=== PATIENT | male | born 1955 | race Caucasian/White ===

== ENCOUNTER 2016-04-30 16:12 | Outpatient (CLI) | payer BC ==
[2016-04-30] MEDS ORDERED: HEPARIN 500 UNIT/5 ML SYRINGE FOR CENTRAL LINE IVP PRN (16:40)
[2016-04-30] MEDS ORDERED: NORMAL SALINE 10 ML SYRINGE FLUSH IVP PRN (16:40)
[2016-04-30 16:44] VITALS: RESP 16; TEMP 98.5
[2016-04-30 17:03] LABS: BASOPHILS # (AUTO) 0.03 10*3/UL; BASOPHILS % (AUTO) 0.7 % (0-1); HEMATOCRIT 28.2 % (42.0-52.0); HEMOGLOBIN 9.2 g/dL (14.0-18.0); IMM GRAN % (AUTO) 0 % (0-5); IMM GRAN# (AUTO) 0 10*3/UL; LYMPHOCYTES # (AUTO) 1.01 10*3/uL; LYMPHOCYTES % (AUTO) 23.8 % (10-50); MEAN CORPUSCULAR HEMOGLOBIN 32.1 PG (27-31); MEAN CORPUSCULAR HGB CONC 32.6 g/dL (33-37); MEAN PLATELET VOLUME 8.8 FL (7.4-12.2); MONOCYTES # (AUTO) 0.41 10*3/UL (0.3-0.8); MONOCYTES % (AUTO) 9.7 % (5-15); NEUTROPHILS # (AUTO) 2.62 10*3/UL; NEUTROPHILS % (AUTO) 61.8 % (50-80); RDW COEFFICIENT OF VARIATION 18.8 % (11.5-14.5); RED BLOOD COUNT 2.87 10^6/uL (4.70-6.10); WHITE BLOOD COUNT 4.24 10^3/uL (4.8-10.8)
[2016-04-30 17:21] LABS: ASPARTATE AMINO TRANSFERASE 16 IU/L (21-57); BILIRUBIN,TOTAL 0.4 mg/dL (0.3-1.2); BLOOD UREA NITROGEN 16 mg/dL (7-22); CALCIUM 8.9 mg/dL (8.7-10.7); CHLORIDE 107 meq/L (98-112); EST GLOMERULAR FILTRATION > 60 (>60 ml/min/1.73m(2)); GLUCOSE 93 mg/dL (78-110); POTASSIUM 3.5 meq/L (3.8-5.2); SODIUM 143 meq/L (135-145); TOTAL PROTEIN 6.3 g/dL (6.1-8.0)
[2016-04-30 17:51] LABS: PLATELET MORPHOLOGY COMMENT NORMAL MORPHOLOGY (NORM)
== END 2016-05-05 21:00 | disposition home or self-care (01) ==
LOC: IV THERAPY 16:12
PROVIDERS: ATTEND Personal Emergency Response Attendant
DX: C10.8 Malignant neoplasm of overlapping sites of oropharynx (principal); Z45.2 Encounter for adjustment and management of vascular access device
CPT/HCPCS: 80053; 85025; 99211

== ENCOUNTER 2016-06-25 18:17 | Emergency (ER) | payer BC ==
[2016-06-25] MEDS ORDERED: ACETAMINOPHEN 325 MG TABLET PO ONE (18:21)
[2016-06-25] MEDS ORDERED: Sodium Chloride 0.9% 1,000 ML PRIMARY IV ONE (18:21)
[2016-06-25] MEDS ORDERED: NORMAL SALINE 10 ML SYRINGE FLUSH IVP PRN (18:21)
[2016-06-25 18:38] VITALS: RESP 18
[2016-06-25] MEDS ORDERED: ACETAMINOPHEN 500 MG TABLET PO ONE (18:52)
[2016-06-25 18:56] LABS: BASOPHILS # (AUTO) 0.02 10*3/UL; BASOPHILS % (AUTO) 0.3 % (0-1); EOSINOPHILS # (AUTO) 0.09 10*3/UL; EOSINOPHILS % (AUTO) 1.4 % (0-8); HEMATOCRIT 35.5 % (42.0-52.0); HEMOGLOBIN 12.3 g/dL (14.0-18.0); LYMPHOCYTES # (AUTO) 0.29 10*3/uL; MEAN CORPUSCULAR HEMOGLOBIN 32.3 PG (27-31); MEAN CORPUSCULAR HGB CONC 34.6 g/dL (33-37); MEAN CORPUSCULAR VOLUME 93.2 FL (80-90); MONOCYTES # (AUTO) 0.63 10*3/UL (0.3-0.8); MONOCYTES % (AUTO) 9.6 % (5-15); NEUTROPHILS # (AUTO) 5.54 10*3/UL; NEUTROPHILS % (AUTO) 84.1 % (50-80); RED BLOOD COUNT 3.81 10^6/uL (4.70-6.10)
[2016-06-25 18:57] LABS: PLATELET MORPHOLOGY COMMENT NORMAL MORPHOLOGY (NORM); RBC MORPHOLOGY COMMENT NORMAL MORPHOLOGY (NORM); WBC MORPHOLOGY COMMENT NORMAL MORPHOLOGY (NORM)
--- NOTE | 2016-06-25 18:57 | DI ---
PA /LATERAL CHEST X-RAY, 06/25/2016 6:21 PM : Clinical History: Fever. Previous Exam: 09/26/2015. There is no acute soft tissue or bony abnormality. The patient has an indwelling catheter inserted fr om the right subclavian route and the catheter tip is in the proximal superior vena cava. Heart size is normal. Lungs are clear. Mediastinal structures are normal. There are no pulmonary nodules. Reading: Normal chest x-ray. There has been no interval change.
[2016-06-25] MEDS ORDERED: HEPARIN 500 UNIT/5 ML SYRINGE FOR CENTRAL LINE IVP ONE (19:07)
[2016-06-25 19:08] LABS: BLOOD UREA NITROGEN 12 mg/dL (7-22); BUN/CREATININE RATIO 13.33 (6-20); C-REACTIVE PROTEIN 7.1 mg/dL (0.0-0.9); CALCIUM 8.5 mg/dL (8.7-10.7); EST GLOMERULAR FILTRATION > 60 (>60 ml/min/1.73m(2)); SERUM ALBUMIN 3.9 g/dL (3.5-4.8)
[2016-06-25 20:02] LABS: BILIRUBIN,URINE NEGATIVE (NEG); COLOR,URINE YELLOW; GLUCOSE, URINE (UA) NEGATIVE (NEG); NITRATE,URINE NEGATIVE (NEG); OCCULT BLOOD,URINE NEGATIVE (NEG); PROTEIN,URINE TRACE mg/dl (NEG); UROBILINOGEN,URINE 0.2 EU/dL (0.2)
[2016-06-25 20:03] LABS: CLARITY,URINE CLEAR (CLEAR); URINE SAMPLE TYPE VOID
[2016-06-25 22:00] VITALS: TEMP 102
--- NOTE | 2016-06-25 23:37 | PDOC ---
General Adult HPI - General Chief Complaint: General Medical Stated Complaint: Fever Date Seen by Provider: 06/25/16 Time Seen by Provider: 18:20 Source: POSITIVE: Patient Exam Limitations: POSITIVE: No limitations Nurse's Notes Reviewed & Considered: Yes - History of Present Illness Initial Comment: The patient is a 60-year-old male who presents to the emergency department with fever. 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 He last received chemotherapy approximately 10 days ago and is currently receiving radiation treatments. He states that he developed a fever at home this afternoon associated with some shaking chills. His temperature at home measured 102. He did contact his oncologist in [place] and they recommended he come to the emergency room for evaluation. He denies any associated headache, increased cough or shortness of breath, abdominal pain, skin rash or any other associated symptoms or complaints. He denies urinary symptoms. Have you received a tetanus shot in the past 10 years?: Yes - Patient Home Medications Home Medications: Home Medications Levofloxacin Tab [Levaquin Tab] 750 mg PO DAILY #9 tablet 06/25/16 Pantoprazole Sodium [Protonix] 40 mg PO DAILY 06/25/16 oxyCODONE/APAP 5/325 Tab [Percocet 5/325 Tab] 1 - 2 tab PO PRN PRN 06/25/16 - Patient Allergies Allergies/Adverse Reactions: Allergies Allergy/AdvReac Type Severity Reaction Status Date / Time hydrocodone Allergy Intermediate RASH Verified 06/25/16 18:20 Past Medical History - heen HEENT History: Other (please comment) Additional HEENT History: PAIN LEFT NECK/DIFFICULTY SWALLOWING/TONSILLAR CANCER Cardiovascular History: Hypertension, Hyperlipidemia Additional Cardiovasular History: RECENT CARDIAC CLEARANCE OBTAINED FROM [facility] FOR TOTAL KNEE SX 11/08/15 Respiratory History: COPD, Snoring Gastrointestinal History: Peptic Ulcer Disease Additional Gastrointestinal History: EGD SHOWED SOME BLEEDING ULCERATIONS- ON PROTONIX FOR THAT Genitourinary History: Denies History Endocrine History: Denies History Musculoskeletal History: Arthritis, Back Pain, Joint Pain Prosthesis or Implant: Yes (LEFT TKA) Additional Musculoskeletal History: OA BILAT KNEES. Back pain related to cancer mets to spine. Primary cancer tonsilar. Neurological History: Denies History Blood Disorders: Denies History Psychiatric History: Denies History History of Sexually Transmitted Diseases: No Cancer History: Other (please comment) In Past Year Been Physically Harmed or Verbally Threatened: No History of MDRO: No History of Other Communicable Diseases: No Tobacco Use: Current Every Day Smoker Alcohol Use: Occasionally Substance Use Type: None Previous Surgical History: Yes Type / Date of Surgery: BILATERAL KNEE SCOPE/ LEFT TKA/ VASECTOMY/EGD/BX. Port placement Anesthesia Reactions: No Malignant Hyperthermia: No Significant Family History: Cancer Past Medical History Reviewed: Reviewed - No Changes ROS - Limitations ROS Limitations: No Limitations Constitution: REPORTS: Chills, Fever Cardiovascular: REPORTS: Denies Cardiac Symptoms Respiratory: REPORTS: Denies Resp Symptoms, Cough Non Productive (This is chronic and not any worse than usual). DENIES: Shortness Of Breath Neurological: DENIES: Headache, Dizziness, Numbness, Weakness Gastrointestinal: DENIES: Abdominal Pain, Nausea, Vomitting, Diarrhea Musculoskeletal: REPORTS: Denies MS Symptoms Genitourinary: REPORTS: Denies Symptoms Eyes: REPORTS: Denies Symptoms ENT: REPORTS: Denies Symptoms Skin: DENIES: Rash General Adult Exam - General Appearance General Appearance: POSITIVE: Alert, Cooperative, No Acute Distress - HEENT HEENT: POSITIVE: Head Inspection Nml, Eyes Inspection Nml, Ears Inspection Nml, Nose Inspection Nml, Pharynx Inspect. Nml - Neck Neck: POSITIVE: Normal Inspection - Respiratory Respiratory: POSITIVE: No Respiratory Distress, Breath Sounds Normal, Other (He does have a port in the right chest wall, there is no visible surrounding swelling, erythema or induration) - Cardiovascular Cardiovascular: POSITIVE: Regular Rate & Rhythm, No Murmur Peripheral Pulses: Dorsalis-pedis (R): 2+, Dorsalis-pedis (L): 2+ - Abdomen Abdomen: Soft: (All Quadrants), Denies Tenderness: (All Quadrants), No Distention: (All Quadrants) - Back Back: POSITIVE: Normal Inspection - Skin Skin: POSITIVE: Normal Color, No Rash - Extremities Extremity: Normal ROM: (All Extremities), Normal Inspection: (All Extremities) - Neurological / Psychological Neurological: POSITIVE: Oriented X3, Motor Normal, Sensation Normal General Adult Progress - Results Reviewed by me Xrays/CTs/US Reviewed by me: Yes Discussed with Radiologist: Yes Radiology Findings: Chest x-ray shows no acute infiltrate or any other acute findings per radiologist. Lab Results Reviewed: Yes Lab Results:: Laboratory Results 06/25/16 06/25/16 Range/Units 18:45 19:59 WBC 6.58 (4.8-10.8) 10^3/uL RBC 3.81 L (4.70-6.10) 10^6/uL Hgb 12.3 L (14.0-18.0) g/dL Hct 35.5 L (42.0-52.0) % MCV 93.2 H (80-90) FL MCH 32.3 H (27-31) PG MCHC 34.6 (33-37) g/dL RDW Std Deviation 39.6 (39-50) fL RDW Coeff of Shabana 11.9 (11.5-14.5) % Plt Count 205 (140-350) 10*3/uL MPV 9.0 (7.4-12.2) FL Immature Gran % (Auto) 0.2 (0-5) % Neut % (Auto) 84.1 H (50-80) % Lymph % (Auto) 4.4 L (10-50) % Otero % (Auto) 9.6 (5-15) % Eos % (Auto) 1.4 (0-8) % Baso % (Auto) 0.3 (0-1) % Immature Gran # (Auto) 0.01 10*3/UL Neut # (Auto) 5.54 10*3/UL Lymph # (Auto) 0.29 10*3/uL Otero # (Auto) 0.63 (0.3-0.8) 10*3/UL Eos # (Auto) 0.09 10*3/UL Baso # (Auto) 0.02 10*3/UL WBC Morphology Comment Normal morphology (NORM) Plt Morphology Comment Normal morphology (NORM) RBC Morph Comment Normal morphology (NORM) Sodium 137 (135-145) meq/L Potassium 3.6 L (3.8-5.2) meq/L Chloride 101 (98-112) meq/L Carbon Dioxide 25 (23-33) meq/L Anion Gap 11 (5-20) BUN 12 (7-22) mg/dL Creatinine 0.9 (0.70-1.50) mg/dL Estimated GFR > 60 (>60 ml/min/1.73m(2)) BUN/Creatinine Ratio 13.33 (6-20) Glucose 124 H (78-110) mg/dL Calculated Osmolality 284.0 (267-292) mOsm/kg Lactic Acid 0.9 (0.70-2.10) MMOL/L Calcium 8.5 L (8.7-10.7) mg/dL Total Bilirubin 0.5 (0.3-1.2) mg/dL AST 13 L (21-57) IU/L ALT 16 L (21-72) IU/L Alkaline Phosphatase 92 (38-126) IU/L C-Reactive Protein 7.1 H (0.0-0.9) mg/dL Total Protein 7.2 (6.1-8.0) g/dL Albumin 3.9 (3.5-4.8) g/dL Globulin 3.3 (2.50-4.10) g/dL Albumin/Globulin Ratio 1.10 L (1.3-2.0) mg/g Ur Collection Type Void Urine Color Yellow Urine Clarity Clear (CLEAR) Urine pH 6.0 (5.0-8.5) Ur Specific [place] 1.010 (1.005-1.030) Urine Protein Trace (NEG) mg/dl Urine Glucose (UA) Negative (NEG) mg/dL Urine Ketones Negative (NEG) Urine Occult Blood Negative (NEG) Urine Nitrate Negative (NEG) Urine Bilirubin Negative (NEG) Urine Urobilinogen 0.2 (0.2) EU/dL Ur Leukocyte Esterase Negative (NEG) Ur Culture Indicated? Culture not set - Patient's Progress MDM / ED Course: The patient was febrile on arrival with a temperature of 102.6. He did receive Tylenol. Blood cultures and lactate were obtained with port access. His blood work is essentially unremarkable with a normal white count and no neutropenia and urinalysis is normal. Chest x-ray shows no acute finding. I did discuss the patient with Dr. bergeron who is his oncologist in [place]. He recommended starting the patient on Levaquin with blood cultures pending. He also recommended that he follow up with the oncology clinic tomorrow prior to his radiation. He is advised return to the emergency room if any worsening or change in symptoms. He was started on Levaquin 750 mg daily for 10 days. - Consult Counseled: POSITIVE: Patient, Family, RE: Lab Results, RE: Radiology Results, RE : DX, RE: Need for F/U Patient Care Time - Estimated PCT Patient Care Time (In Minutes): 35 Vital Signs - Recent Vital Signs Vital Signs: Vital Signs (Last 8 hours) Temp Pulse Resp BP Pulse Ox 06/25/16 20:00 102 F H 06/25/16 18:30 102.6 F H 06/25/16 18:18 102.6 F H 103 H 18 173/94 95 - VS Reviewed Vital Signs Reviewed: Yes Discharge Clinical Impression: Fever Discharge Disposition: Discharged to Home Condition: Stable Prescriptions / Orders: Levofloxacin Tab [Levaquin Tab] 750 mg PO DAILY #9 tablet Patient Instructions Given at Discharge: Fever in Adults (ED) Additional Instructions: The exact source of your fever remains unclear at this point. Cultures of your blood are pending. [facility] oncologist recommended starting Levaquin 750 mg daily. You have been given a prescription for 10 days worth. Continue Tylenol as needed for fever. Return to the emergency room if increased weakness, any worsening or change in symptoms. Follow-up for radiation in the morning as previously scheduled and they will reevaluate you at the oncology clinic then. Follow Up With: ERIKA HUDSON [Primary Care Provider] -
== END 2016-06-25 20:25 | disposition home or self-care (01) ==
LOC: ER 18:17
DX: R50.9 Fever, unspecified (principal); C09.9 Malignant neoplasm of tonsil, unspecified; C79.51 Secondary malignant neoplasm of bone
CPT/HCPCS: 36415; 71020; 80053; 81003; 83605; 85025; 86140; 87040; 99283; J7030

== ENCOUNTER 2016-07-04 02:08 | Observation (INO) | payer BC ==
[2016-07-04] MEDS ORDERED: Sodium Chloride 0.9% 1,000 ML PRIMARY IV ONE (02:21)
[2016-07-04] MEDS ORDERED: NORMAL SALINE 10 ML SYRINGE FLUSH IVP PRN ×2 (02:21→04:43)
[2016-07-04] MEDS ORDERED: KETOROLAC 15 MG/1 ML VIAL IVP ONE (02:21)
[2016-07-04] MEDS ORDERED: ONDANSETRON 4 MG/2 ML VIAL IVP ONE (02:21)
[2016-07-04] MEDS ORDERED: ASPIRIN 81 MG (BABY) CHEWABLE TABLET PO ONE (02:21)
[2016-07-04] MEDS ORDERED: MORPHINE SULFATE 4 MG/1 ML IVP ONE (02:23)
--- NOTE | 2016-07-04 02:26 | EKG ---
[address] [address] Measurements Intervals Jones Rate: 93 P: 4 [place]: 119 QRS: 56 QRSD: 83 T: 59 QT: 408 QTc: 459 Interpretive Statements SINUS RHYTHM WITH SHORT [place] INTERVAL Compared to ECG 09/25/2015 13:36:22 Short [place] interval now present Electronically Signed On 07-04-16 13:12:06 MDT by Loco Rodrigues [email or web address]
[2016-07-04 02:50] LABS: BASOPHILS # (AUTO) 0.01 10*3/UL; BASOPHILS % (AUTO) 0.1 % (0-1); EOSINOPHILS # (AUTO) 0.04 10*3/UL; EOSINOPHILS % (AUTO) 0.5 % (0-8); HEMATOCRIT 34.4 % (42.0-52.0); HEMOGLOBIN 12.2 g/dL (14.0-18.0); LYMPHOCYTES # (AUTO) 0.25 10*3/uL; MEAN CORPUSCULAR HEMOGLOBIN 32.4 PG (27-31); MEAN CORPUSCULAR HGB CONC 35.5 g/dL (33-37); MEAN CORPUSCULAR VOLUME 91.2 FL (80-90); MEAN PLATELET VOLUME 9.4 FL (7.4-12.2); MONOCYTES # (AUTO) 0.45 10*3/UL (0.3-0.8); MONOCYTES % (AUTO) 5.9 % (5-15); NEUTROPHILS # (AUTO) 6.84 10*3/UL; NEUTROPHILS % (AUTO) 90.1 % (50-80); RED BLOOD COUNT 3.77 10^6/uL (4.70-6.10)
[2016-07-04] MEDS ORDERED: HYDROmorphone 2 MG/1 ML IVP ONE (02:50)
[2016-07-04] MEDS ORDERED: HYDROmorphone 2 MG/1 ML ONE (02:51)
[2016-07-04 02:55] LABS: PLATELET MORPHOLOGY COMMENT NORMAL MORPHOLOGY (NORM); RBC MORPHOLOGY COMMENT NORMAL MORPHOLOGY (NORM); WBC MORPHOLOGY COMMENT NORMAL MORPHOLOGY (NORM)
[2016-07-04 02:57] LABS: BLOOD UREA NITROGEN 15 mg/dL (7-22); CALCIUM 8.2 mg/dL (8.7-10.7); EST GLOMERULAR FILTRATION > 60 (>60 ml/min/1.73m(2)); LIPASE 12 IU/L (23-300); MAGNESIUM 1.8 mg/dL (1.6-2.4); SERUM ALBUMIN 3.6 g/dL (3.5-4.8)
[2016-07-04 03:01] LABS: C-REACTIVE PROTEIN 7.9 mg/dL (0.0-0.9)
[2016-07-04 03:09] LABS: CREATINE KINASE MB 0.53 NG/ML (0.00-5.00); TROPONIN I < 0.012 ng/mL (< 0.040)
[2016-07-04] MEDS ORDERED: Pantoprazole Inj 40 MG in Normal Saline Flush 10 ML IVP ONE (04:01)
--- NOTE | 2016-07-04 04:08 | PDOC ---
Chest Pain HPI - General Chief Complaint: Chest Pain Stated Complaint: SUBSTERNAL CHEST PAIN/EPIGASTRIC PAIN Date Seen by Provider: 07/04/16 Time Seen by Provider: 02:10 Source: Patient Exam Limitations: POSITIVE: No limitations Nurse's Notes Reviewed & Considered: Yes EMS Report Reviewed & Considered: Verbal - History of Present Illness Initial Comments: The patient is a 60-year-old male who is brought to the emergency department by ambulance with chest pain. The patient states that approximately an hour and a half prior to arrival he had onset of pain in his lower chest. He describes the pain as a sharp stabbing pain. The pain is somewhat worsened with taking a deep breath. He denies associated shortness of breath, diaphoresis, palpitation or nausea. He does have a history of squamous cell carcinoma that started in his left tonsil and has metastasized to his shoulder and spine. He is currently under going radiation treatments and chemotherapy in [place]. In addition he has been having some reflux symptoms recently. He increased his Protonix to twice a day a couple of weeks ago however has continued to have significant heartburn type symptoms. He has not had pain like tonight previously however. His appetite is been poor especially while receiving his chemotherapy and radiation treatments. Overall he's lost close to 55 pounds since December of last year. He does use boost as a supplement. He did have a fever last week and was seen here in the emergency room. He had been started on Levaquin at that time. Exact etiology was not determined and his blood cultures have been negative. He does not have any known history of heart disease. He does have a history of hypertension as well as hyperlipidemia. He also has previous history of smoking and positive family history for heart disease. - Patient Home Medications Home Medications: Home Medications Levofloxacin Tab [Levaquin Tab] 750 mg PO DAILY #9 tablet 06/25/16 Pantoprazole Sodium [Protonix] 40 mg PO DAILY 06/25/16 oxyCODONE/APAP 5/325 Tab [Percocet 5/325 Tab] 1 - 2 tab PO PRN PRN 06/25/16 Fluticasone Propionate [Flonase Allergy Relief] 1 spray N/A DAILY 07/04/16 - Patient Allergies Allergies/Adverse Reactions: Allergies Allergy/AdvReac Type Severity Reaction Status Date / Time hydrocodone Allergy Intermediate RASH Verified 07/04/16 02:45 Past Medical History - heen HEENT History: Other (please comment) Additional HEENT History: PAIN LEFT NECK/DIFFICULTY SWALLOWING/TONSILLAR CANCER Cardiovascular History: Hypertension, Hyperlipidemia Additional Cardiovasular History: RECENT CARDIAC CLEARANCE OBTAINED FROM [facility] FOR TOTAL KNEE SX 11/08/15 Respiratory History: COPD, Snoring Gastrointestinal History: Peptic Ulcer Disease Additional Gastrointestinal History: EGD SHOWED SOME BLEEDING ULCERATIONS- ON PROTONIX FOR THAT Genitourinary History: Denies History Endocrine History: Denies History Musculoskeletal History: Arthritis, Back Pain, Joint Pain Prosthesis or Implant: Yes (LEFT TKA) Additional Musculoskeletal History: OA BILAT KNEES. Back pain related to cancer mets to spine. Primary cancer tonsilar. Neurological History: Denies History Blood Disorders: Denies History Psychiatric History: Denies History History of Sexually Transmitted Diseases: No Male Reproductive History: Denies History Cancer History: Other (please comment) In Past Year Been Physically Harmed or Verbally Threatened: No History of MDRO: No History of Other Communicable Diseases: No Tobacco Use: Current Every Day Smoker Alcohol Use: Occasionally Substance Use Type: None Previous Surgical History: Yes Type / Date of Surgery: BILATERAL KNEE SCOPE/ LEFT TKA/ VASECTOMY/EGD/BX. Port placement Anesthesia Reactions: No Malignant Hyperthermia: No Significant Family History: Cancer ROS - Limitations ROS Limitations: No Limitations Constitution: REPORTS: Fever (Last week, none recently). DENIES: Chills Cardiovascular: REPORTS: Chest Pain. DENIES: Heart Palpitations, Edema Respiratory: REPORTS: Hurts To Breathe, Shortness Of Breath Neurological: REPORTS: Denies Neuro Symptoms Gastrointestinal: REPORTS: Denies GI Symptoms Musculoskeletal: DENIES: Calf Pain, Lower Extremity Swelling Eyes: REPORTS: Denies Symptoms ENT: REPORTS: Other (He has had problems with thrush recently) Skin: DENIES: Rash Chest Pain PE - General Appearance General Appearance: REPORTS: Alert, Cooperative, No Acute Distress, Anxious - HEENT HEENT: POSITIVE: Head Inspection Nml, Eyes Inspection Nml, Ears Inspection Nml - Neck Neck: REPORTS: Normal Inspection. DENIES: JVD Present - Respiratory Respiratory: REPORTS: No Respiratory Distress, Breath Sounds Normal, Chest Non- Tender - Cardiovascular Cardiovascular: REPORTS: Regular Rate and Rhythm, Heart Sounds Normal Peripheral Pulses: Dorsalis-pedis (R): 2+, Dorsalis-pedis (L): 2+ - Abdomen Abdomen: Soft: (All Quadrants), Denies Tenderness: (All Quadrants) - Skin Skin: REPORTS: Intact, No Rash - Extremities Extremity: Normal ROM: (All Extremities), Normal Inspection: (All Extremities) - Neurological / Psychological Neurological: POSITIVE: Oriented X3, Motor Normal, Sensation Normal Chest Pain Progress - Results Reviewed by me Xrays/CTs/US Reviewed by me: Yes Discussed with Radiologist: Yes Radiology Findings: CT PE protocol is negative for PE or dissection, no obvious lytic bone lesions or any other acute abnormalities per radiologist. Lab Results Reviewed: Yes Lab Results:: Laboratory Results 07/04/16 07/04/16 Range/Units 02:20 02:40 WBC 7.60 (4.8-10.8) 10^3/uL RBC 3.77 L (4.70-6.10) 10^6/uL Hgb 12.2 L (14.0-18.0) g/dL Hct 34.4 L (42.0-52.0) % MCV 91.2 H (80-90) FL MCH 32.4 H (27-31) PG MCHC 35.5 (33-37) g/dL RDW Std Deviation 38.0 L (39-50) fL RDW Coeff of Shabana 11.8 (11.5-14.5) % Plt Count 249 (140-350) 10*3/uL MPV 9.4 (7.4-12.2) FL Immature Gran % (Auto) 0.1 (0-5) % Neut % (Auto) 90.1 H (50-80) % Lymph % (Auto) 3.3 L (10-50) % Bailey % (Auto) 5.9 (5-15) % Eos % (Auto) 0.5 (0-8) % Baso % (Auto) 0.1 (0-1) % Immature Gran # (Auto) 0.01 10*3/UL Neut # (Auto) 6.84 10*3/UL Lymph # (Auto) 0.25 10*3/uL Bailey # (Auto) 0.45 (0.3-0.8) 10*3/UL Eos # (Auto) 0.04 10*3/UL Baso # (Auto) 0.01 10*3/UL WBC Morphology Comment Normal morphology (NORM) Plt Morphology Comment Normal morphology (NORM) RBC Morph Comment Normal morphology (NORM) D-Dimer 0.68 H (0.00-0.59) mg/L Sodium 136 (135-145) meq/L Potassium 3.5 L (3.8-5.2) meq/L Chloride 100 (98-112) meq/L Carbon Dioxide 22 L (23-33) meq/L Anion Gap 14 (5-20) BUN 15 (7-22) mg/dL Creatinine 1.0 (0.70-1.50) mg/dL Estimated GFR > 60 (>60 ml/min/1.73m(2)) BUN/Creatinine Ratio 15.00 (6-20) Glucose 135 H (78-110) mg/dL Calculated Osmolality 284.0 (267-292) mOsm/kg Lactic Acid 1.0 (0.70-2.10) MMOL/L Calcium 8.2 L (8.7-10.7) mg/dL Magnesium 1.8 (1.6-2.4) mg/dL Total Bilirubin 0.8 (0.3-1.2) mg/dL AST 14 L (21-57) IU/L ALT 21 (21-72) IU/L Alkaline Phosphatase 91 (38-126) IU/L CK-MB (CK-2) 0.53 (0.00-5.00) NG/ML Troponin I < 0.012 (< 0.040) ng/mL C-Reactive Protein 7.9 H (0.0-0.9) mg/dL Total Protein 6.5 (6.1-8.0) g/dL Albumin 3.6 (3.5-4.8) g/dL Globulin 2.8 (2.50-4.10) g/dL Albumin/Globulin Ratio 1.20 L (1.3-2.0) mg/g Amylase < 30 L (30-110) U/L Lipase 12 L (23-300) IU/L EKG Interpreted/Reviewed By Me:: Yes EKG Interpretation:: POSITIVE: Normal Sinus Rhythm, Normal Rate, Normal Intervals, Normal QRS, Normal ST/T - Patient's Progress MDM / ED Course: On arrival the patient had an EKG which shows a sinus rhythm with no acute ST segment or T-wave changes. He did receive aspirin per chest pain protocol. In addition he received Toradol and morphine for pain as his pain was somewhat pleuritic. This did not seem to help a lot in regards to his pain. He subsequently received Dilaudid 1 mg IV with improvement in pain although his pain did not completely resolve. His blood work is all essentially unremarkable except for mildly elevated d-dimer. He underwent CTA of the chest which was negative for PE or dissection. No other acute findings per radiologist. Findings were discussed with the patient and his family. I did also discussed the patient with Dr. Louis. Current plan is for admission for further cardiac monitoring. It is possible that this may be a GI source and he was given IV Protonix as well. - Consult Counseled: POSITIVE: Patient, Family, RE: Lab Results, RE: Radiology Results, RE : DX, RE: Need for F/U Patient Care Time - Estimated PCT Patient Care Time (In Minutes): 35 Vital Signs - Recent Vital Signs Vital Signs: Vital Signs (Last 8 hours) Temp Pulse Resp BP Pulse Ox 07/04/16 02:09 98.0 F 100 22 116/70 97 - VS Reviewed Vital Signs Reviewed: Yes Discharge Clinical Impression: Chest pain, Metastatic squamous cell carcinoma Discharge Disposition: Admit to Observation Condition: Fair
[2016-07-04] MEDS ORDERED: CALCIUM CARBONATE 500 MG (TUMS) CHEWABLE TABLET PO PRN (04:43)
[2016-07-04] MEDS ORDERED: NITROGLYCERIN 0.4 MG SL TAB (BOTTLE OF 3) SL PRN (04:43)
[2016-07-04] MEDS ORDERED: LIDOCAINE W/ SODIUM BICARB 0.5 ML SYR SUBD PRN (04:43)
[2016-07-04] MEDS ORDERED: ONDANSETRON 4 MG/2 ML VIAL IVP PRN (04:43)
[2016-07-04] MEDS ORDERED: oxyCODONE-ACETAMINOPHEN 5-325 TAB PO PRN (04:43)
[2016-07-04 05:50] LABS: FREE T4 (FREE THYROXINE) 1.52 ng/dL (0.93-1.71)
[2016-07-04] MEDS ORDERED: PANTOPRAZOLE 40 MG TABLET PO SCH (07:00)
[2016-07-04 07:36] LABS: CHOL/HDL RATIO 3.91 RATIO (0-4.0)
[2016-07-04] MEDS ORDERED: FLUTICASONE PROPIONATE 16 GRAM (120 SPRAYS / BOTTLE) ENOS SCH (09:00)
[2016-07-04] MEDS: ENOXAPARIN SODIUM 40 MG/0.4 ML SYRINGE SUBCUT SCH (15:09)
[2016-07-04] MEDS ORDERED: FLUCONAZOLE IV ONE (15:21)
[2016-07-04] MEDS ORDERED: SODIUM CHLORIDE IV ONE (15:21)
[2016-07-04] MEDS ORDERED: FAMOTIDINE 40 MG TABLET PO ONE (15:22)
--- NOTE | 2016-07-04 15:28 | PDOC ---
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 He presents today with chest pain that woke him up at around 2 in the morning or so. He was brought in by ambulance for evaluation, stated that he felt short of breath and called it a 10 over 10 pain. He tried oxycodone and also tried Tums for this pain as well as an aspirin and it did not make it better. He states today is down to 3. He ruled out for myocardial infarction. I was able to confirm that he had a negative heart catheterization 10/12/2015 with a normal ejection fraction of 60-65%. He had 0% stenosis in the left main coronary artery, left anterior descending, left circumflex, and right coronary arteries. The patient has 1 more radiation therapy appointment which was supposed to take place today. He states that he is doing opdivo for his cancer and is also doing xgeva for osteoporosis prevention. The patient had a negative CT scan for pulmonary emboli. He has not had a blood clot before. He did state that he felt like it had thrush, he's lost 50 pounds overall and 14 in the last month. He has not been visiting with the dietitian. He notes that he is had worsened acid reflux over the last 6 weeks. No other exacerbating factors than that. EKG and chest x-ray were negative for any acute coronary problems. Past Medical History Medical History: 1. Osteoarthritis. 2. 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 Receiving opdivo and also xgeva. 3. GERD. 4. Loss of weight related to neoplasm Surgical History: 1. Tonsillar biopsy. 2. Left knee replacement. 3. Arthroscopy on his knee Pertinent Family History: History of gastric cancer. Past Social History: Smokes. Doesn't drink alcohol. . Has 3 children described as healthy. Works here in maintenance at the hospital. Tobacco Use: Current Every Day Smoker Substance Use Type: None Alcohol Use: None Medication / Allergies Home Medications: Home Medications Medication Instructions Recorded Confirmed Type Levofloxacin Tab [Levaquin Tab] 750 mg PO DAILY #9 tablet 04/18/17 04/27/17 Rx Pantoprazole Sodium [Protonix] 40 mg PO DAILY 06/25/16 07/04/16 History oxyCODONE/APAP 5/325 Tab 1 - 2 tab PO PRN PRN 06/25/16 07/04/16 History [Percocet 5/325 Tab] Allergies/Adverse Reactions: Allergies Allergy/AdvReac Type Severity Reaction Status Date / Time hydrocodone Allergy Intermediate RASH Verified 07/04/16 07:03 Review of Systems - Review of Systems All Systems: Reviewed & No Additional Complaints Except as Stated (I did a 12 point review of systems and it was negative other than that discussed in history present illness and that noted below.) - Constitutional Constitutional: REPORTS: General Health Poor, Weight Loss, Fever/Chills (Had recent fevers post xgeva injection, with negative fever workup. Has not had any neutropenia.), Weakness - Mouth/Throat Mouth/Throat Exam: REPORTS: Other (Has had thrush and also has tonsillar cancer) - Respiratory Respiratory: DENIES: Negative System Review, Cough, Sputum, Dyspnea At Rest, Dyspnea with Exertion, Pleuritic Pain, Hemoptysis, Wheezing, Other, See HPI - Cardiovascular Cardiovascular: REPORTS: Chest Pain - Gastrointestinal Gastrointestinal / Abdominal: REPORTS: Heartburn, Other (Has early satiety) - Genitourinary Genitourinary: DENIES: Negative System Review, Pain, Burning, Hematuria, Incontinence, Urgency, Hesitant Stream, Decreased Stream, Nocutria, Discharge, Sexual Dyfunction, Other, See HPI - Musculoskeletal Musculoskeletal: REPORTS: Joint Pain - Knees (But overall much better than prior to knee replacement in the past.) - Hematlogic / Lymphatic Hematologic / Lymphatic: REPORTS: Other (Has metastatic lesions to the left shoulder into his spine.) - Neurological Neurologic: DENIES: Negative System Review, Headache, Numbness/Paresthesia, Tremors, Weakness, Seizures, Head Trauma, LOC, Dizziness, Confusion, Memory Loss , Difficulty Walking, Incoordination, Other, See HPI Exam - Vitals Vital Signs: Vital Signs Temperature 98.7 F Temperature Source Temporal Artery Scan Pulse Rate [Pulse Oximeter] 93 Pulse Rate 93 Respiratory Rate 17 Blood Pressure [Right Arm] 121/75 Blood Pressure 117/77 Pulse Ox 95 Oxygen Delivery Method Room Air Height 6 ft Weight 151 lb - General General Appearance: POSITIVE: No Acute Distress, Cooperative, Thin - Head Head Exam: POSITIVE: Normal Inspection, Normocephalic, Atraumatic - Eye Eye Exam: POSITIVE: EOMI, No Scleral Icterus - ENT ENT Exam: POSITIVE: Mucous Membranes Moist Additonal ENT Exam Details: Thrush coated tongue. - Neck Neck Exam: POSITIVE: Normal Inspection, No Tenderness, No Thyromegaly - Respiratory Respiratory Exam: POSITIVE: Clear to Auscultation - Bilaterally, Breathing Non Labored, Normal to Percussion and Palpation - Cardiovascular Cardiovascular Exam: POSITIVE: RRR, No Murmur, No Clicks, No Gallops, No Rubs, No JVD Additional Cardiovascular Details: Chest pain is not reproducible to palpation. - GI/Abdominal GI/Abdominal Exam: POSITIVE: Normal Bowel Sounds, Non Tender, Non Distended, Soft - Rectal Rectal Exam: POSITIVE: Deferred - External Exam: POSITIVE: Deferred Exam: POSITIVE: Deferred - Extremities Extremities Exam: POSITIVE: No Clubbing Present, No Edema Present, No Cyanosis Present - Back Back Exam: POSITIVE: Normal Inspection, No CVA Tenderness - Neurological Neurological Exam: POSITIVE: Alert, Oriented x 3, No Facial Droop, Speech Intact / Clear, Moves All Extremities Equally - Psychiatric Psychiatric Exam: POSITIVE: Normal Affect, Normal Mood - Integumentary Integumentary Exam: POSITIVE: Normal Color, Warm, Dry, Intact - Central Line Examination Central Line Present on Admission: Yes Central Line Type: Med-Port Central Line Location: Subclavian (R) Central Line Site Observations: POSITIVE: Asymptomatic, Intact, Patent Results - Labs CBC and BMP: 07/04/16 02:20 07/04/16 02:20 Labs - Last 24 Hours: Laboratory Results 07/04/16 07/04/16 Range/Units 06:00 12:04 Troponin I < 0.012 < 0.012 (< 0.040) ng/mL Triglycerides 75 (44-200) mg/dL Cholesterol 137 (120-200) mg/dL LDL Cholesterol, Calc 87.000 mg/dL VLDL Cholesterol 15 (0-40) mg/dL HDL Cholesterol 35 L (40-150) mg/dL Cholesterol/HDL Ratio 3.91 (0-4.0) RATIO - EKG Data -: EKG Interpreted by Me Rate: Normal EKG Shows Normal: Sinus Rhythm - EKG Data EKG Interpretation: Normal EKG - Imaging Status: Image Reviewed by Me (Chest x-ray shows the Mediport on the right, but otherwise negative and no pneumonia. CT scan of the chest was read as negative for pulmonary emboli, and I did not notice any pneumonia on my view.) Assessment and Plan - Patient Problems (1) Esophageal candidiasis Current Visit: Yes Status: Acute (2) Chest pain Current Visit: Yes Status: Acute (3) Metastatic squamous cell carcinoma Current Visit: Yes Status: Acute (4) GERD (gastroesophageal reflux disease) Current Visit: Yes Status: Acute Qualifiers: Esophagitis presence: without esophagitis Qualified Description: Gastroesophageal reflux disease without esophagitis Qualifier Code(s): ( K21.9) Gastro-esophageal reflux disease without esophagitis (5) Loss of weight Current Visit: Yes Status: Acute (6) Moderate protein malnutrition Current Visit: Yes Status: Acute - Assessment / Plan Additional Assessment/Plan Details: Admit the patient. He effectively has ruled out for myocardial infarction, acutely, and I think that with a negative heart catheterization a year ago, there is little value in repeating stress test for this patient, however, I think his pain is significantly worsened in the setting of esophageal candidiasis. I think the best thing to do for this patient would be to get him on fluconazole and nystatin, treat locally and systemically, and I have called surgery to see if he can move up his outpatient EGD. I like to get a couple doses of fluconazole IV, start nystatin, and get a dietitian to work on nutrition issues to help us patient better succeed in his davidson against cancer. Further, DVT prophylaxis will be initiated. I think we should go ahead and get ultrasounds of the lower extremities to rule out DVT as certainly that could be in the differential even though the CT scan was negative for pulmonary emboli. Increased reflux disease medications and add H2 megan as well. I discussed the above with the patient and his and they agreed. Likely discharge home tomorrow. Photo / Body Diagrams - Uploaded Photos Uploaded Photos:
[2016-07-04] MEDS: NYSTATIN 100000 UNIT/1 ML - 5 ML UD CUP PO SCH ×2 (16:23→20:40)
[2016-07-04] MEDS: PANTOPRAZOLE 40 MG TABLET PO SCH (20:40)
[2016-07-05 08:01] VITALS: RESP 20; TEMP 98.7
[2016-07-05] MEDS: PANTOPRAZOLE 40 MG TABLET PO SCH (08:52)
[2016-07-05] MEDS: NYSTATIN 100000 UNIT/1 ML - 5 ML UD CUP PO SCH (08:52)
[2016-07-05] MEDS: ENOXAPARIN SODIUM 40 MG/0.4 ML SYRINGE SUBCUT SCH (08:53)
[2016-07-05] MEDS ORDERED: SODIUM CHLORIDE IV SCH (09:00)
[2016-07-05] MEDS ORDERED: FLUCONAZOLE IV SCH (09:00)
[2016-07-05] MEDS ORDERED: FAMOTIDINE 40 MG TABLET PO SCH (09:00)
--- NOTE | 2016-07-05 11:21 | DCSUMMARY ---
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 He presented with acute onset of chest pain that woke him up, and he is admitted. We found quickly that he had a negative heart catheterization in the past, and he ruled out for myocardial infarction. He had significant weight loss, decreased appetite, and an exam consistent with severe oral thrush. I suspect based on his symptoms that he has esophageal candidiasis. I spoke with surgery about this and the patient will actually have an outpatient EGD done next Friday. CT scan of the chest was noted to be negative for pulmonary emboli. In the meantime, we placed patient on fluconazole, H2 blockers, and increase the Protonix to twice daily. We also stopped Levaquin. He had been on this in the setting of a nonspecific fever with no evidence of systemic infection. All these things help the patient improved and today he denies any chest pain, states that he has no shortness breath, no nausea or vomiting. He is "ready to go home". It was noted that he does sneak out of the hospital last night to go smoke. We are also having the patient follow our dietitian to help with nutrition in the setting of his active malignancy. Assessment and Plan: 1. As per discharge assessments noted 2. Disposition: Patient is discharged home. 3. Condition on discharge, stable and improved. 4. Diet: regular diet 5. Activities: resume normal activities 6. Follow-Up: 1. Primary care provider in one week 2. Dr. Garay on Friday for an EGD 7. Medications at the Time of Discharge: Home Medications Medication Instructions Recorded Confirmed Type Pantoprazole Sodium [Protonix] 40 mg PO DAILY 06/25/16 07/04/16 History oxyCODONE/APAP 5/325 Tab 1 - 2 tab PO PRN PRN 06/25/16 07/04/16 History [Percocet 5/325 Tab] Fluconazole 200 mg PO DAILY #7 tab 07/05/16 Rx Nystatin Susp [Mycostatin Susp] 100,000 unit PO QID #1 bottle 07/05/16 Rx Ranitidine HCl [Zantac] 150 mg PO BID #60 cap 07/05/16 Rx 8. Time, care, counseling and coordination of care for this discharge is greater than 30 minutes. Exam - Vitals Vital Signs: Vital Signs Temperature 98.7 F Temperature Source Temporal Artery Scan Pulse Rate [Telemetry] 101 Pulse Rate [Pulse Oximeter] 92 Pulse Rate 88 Respiratory Rate 20 Blood Pressure [Right Arm] 123/88 Blood Pressure 117/77 Pulse Ox 94 Oxygen Delivery Method Room Air Height 6 ft Weight 150 lb 15.984 oz - General General Appearance: POSITIVE: No Acute Distress, Cooperative - Eye Eye Exam: POSITIVE: No Scleral Icterus - Respiratory Respiratory Exam: POSITIVE: Clear to Auscultation - Bilaterally, Breathing Non Labored - Cardiovascular Cardiovascular Exam: POSITIVE: RRR, No Murmur, No Clicks, No Gallops, No Rubs, No JVD - GI/Abdominal GI/Abdominal Exam: POSITIVE: Normal Bowel Sounds, Non Tender, Non Distended, Soft - Extremities Extremities Exam: POSITIVE: No Edema Present, No Cyanosis Present, Clubbing Present - Neurological Neurological Exam: POSITIVE: Alert, Oriented x 3, No Facial Droop, Speech Intact / Clear, Moves All Extremities Equally Data Perinent Studies: Laboratory Results 07/04/16 07/04/16 07/04/16 Range/Units 02:20 02:40 06:00 WBC 7.60 (4.8-10.8) 10^3/uL RBC 3.77 L (4.70-6.10) 10^6/uL Hgb 12.2 L (14.0-18.0) g/dL Hct 34.4 L (42.0-52.0) % MCV 91.2 H (80-90) FL MCH 32.4 H (27-31) PG MCHC 35.5 (33-37) g/dL RDW Std Deviation 38.0 L (39-50) fL RDW Coeff of Shabana 11.8 (11.5-14.5) % Plt Count 249 (140-350) 10*3/uL MPV 9.4 (7.4-12.2) FL Immature Gran % (Auto) 0.1 (0-5) % Neut % (Auto) 90.1 H (50-80) % Lymph % (Auto) 3.3 L (10-50) % [place] % (Auto) 5.9 (5-15) % Eos % (Auto) 0.5 (0-8) % Baso % (Auto) 0.1 (0-1) % Immature Gran # (Auto) 0.01 10*3/UL Neut # (Auto) 6.84 10*3/UL Lymph # (Auto) 0.25 10*3/uL [place] # (Auto) 0.45 (0.3-0.8) 10*3/UL Eos # (Auto) 0.04 10*3/UL Baso # (Auto) 0.01 10*3/UL WBC Morphology Comment Normal morphology (NORM) Plt Morphology Comment Normal morphology (NORM) RBC Morph Comment Normal morphology (NORM) D-Dimer 0.68 H (0.00-0.59) mg/L Sodium 136 (135-145) meq/L Potassium 3.5 L (3.8-5.2) meq/L Chloride 100 (98-112) meq/L Carbon Dioxide 22 L (23-33) meq/L Anion Gap 14 (5-20) BUN 15 (7-22) mg/dL Creatinine 1.0 (0.70-1.50) mg/dL Estimated GFR > 60 (>60 ml/min/1.73m(2)) BUN/Creatinine Ratio 15.00 (6-20) Glucose 135 H (78-110) mg/dL Calculated Osmolality 284.0 (267-292) mOsm/kg Lactic Acid 1.0 (0.70-2.10) MMOL/L Calcium 8.2 L (8.7-10.7) mg/dL Magnesium 1.8 (1.6-2.4) mg/dL Total Bilirubin 0.8 (0.3-1.2) mg/dL AST 14 L (21-57) IU/L ALT 21 (21-72) IU/L Alkaline Phosphatase 91 (38-126) IU/L CK-MB (CK-2) 0.53 (0.00-5.00) NG/ML Troponin I < 0.012 < 0.012 (< 0.040) ng/mL C-Reactive Protein 7.9 H (0.0-0.9) mg/dL Total Protein 6.5 (6.1-8.0) g/dL Albumin 3.6 (3.5-4.8) g/dL Globulin 2.8 (2.50-4.10) g/dL Albumin/Globulin Ratio 1.20 L (1.3-2.0) mg/g Triglycerides 75 (44-200) mg/dL Cholesterol 137 (120-200) mg/dL LDL Cholesterol, Calc 87.000 mg/dL VLDL Cholesterol 15 (0-40) mg/dL HDL Cholesterol 35 L (40-150) mg/dL Cholesterol/HDL Ratio 3.91 (0-4.0) RATIO Amylase < 30 L (30-110) U/L Lipase 12 L (23-300) IU/L TSH 2.67 (0.2700-4.2000) uIU/mL Free T4 1.52 (0.93-1.71) ng/dL 07/04/16 Range/Units 12:04 WBC (4.8-10.8) 10^3/uL RBC (4.70-6.10) 10^6/uL Hgb (14.0-18.0) g/dL Hct (42.0-52.0) % MCV (80-90) FL MCH (27-31) PG MCHC (33-37) g/dL RDW Std Deviation (39-50) fL RDW Coeff of Shabana (11.5-14.5) % Plt Count (140-350) 10*3/uL MPV (7.4-12.2) FL Immature Gran % (Auto) (0-5) % Neut % (Auto) (50-80) % Lymph % (Auto) (10-50) % [place] % (Auto) (5-15) % Eos % (Auto) (0-8) % Baso % (Auto) (0-1) % Immature Gran # (Auto) 10*3/UL Neut # (Auto) 10*3/UL Lymph # (Auto) 10*3/uL [place] # (Auto) (0.3-0.8) 10*3/UL Eos # (Auto) 10*3/UL Baso # (Auto) 10*3/UL WBC Morphology Comment (NORM) Plt Morphology Comment (NORM) RBC Morph Comment (NORM) D-Dimer (0.00-0.59) mg/L Sodium (135-145) meq/L Potassium (3.8-5.2) meq/L Chloride (98-112) meq/L Carbon Dioxide (23-33) meq/L Anion Gap (5-20) BUN (7-22) mg/dL Creatinine (0.70-1.50) mg/dL Estimated GFR (>60 ml/min/1.73m(2)) BUN/Creatinine Ratio (6-20) Glucose (78-110) mg/dL Calculated Osmolality (267-292) mOsm/kg Lactic Acid (0.70-2.10) MMOL/L Calcium (8.7-10.7) mg/dL Magnesium (1.6-2.4) mg/dL Total Bilirubin (0.3-1.2) mg/dL AST (21-57) IU/L ALT (21-72) IU/L Alkaline Phosphatase (38-126) IU/L CK-MB (CK-2) (0.00-5.00) NG/ML Troponin I < 0.012 (< 0.040) ng/mL C-Reactive Protein (0.0-0.9) mg/dL Total Protein (6.1-8.0) g/dL Albumin (3.5-4.8) g/dL Globulin (2.50-4.10) g/dL Albumin/Globulin Ratio (1.3-2.0) mg/g Triglycerides (44-200) mg/dL Cholesterol (120-200) mg/dL LDL Cholesterol, Calc mg/dL VLDL Cholesterol (0-40) mg/dL HDL Cholesterol (40-150) mg/dL Cholesterol/HDL Ratio (0-4.0) RATIO Amylase (30-110) U/L Lipase (23-300) IU/L TSH (0.2700-4.2000) uIU/mL Free T4 (0.93-1.71) ng/dL Patient Problems - Patient Problem List (1) Esophageal candidiasis Current Visit: Yes Status: Acute (2) GERD (gastroesophageal reflux disease) Current Visit: Yes Status: Acute Qualifiers: Esophagitis presence: without esophagitis Qualified Description: Gastroesophageal reflux disease without esophagitis Qualifier Code(s): ( K21.9) Gastro-esophageal reflux disease without esophagitis (3) Chest pain Current Visit: Yes Status: Acute (4) Metastatic squamous cell carcinoma Current Visit: Yes Status: Acute (5) Loss of weight Current Visit: Yes Status: Acute (6) Moderate protein malnutrition Current Visit: Yes Status: Acute
== END 2016-07-05 12:02 | disposition home or self-care (01) ==
LOC: ER 02:08 → MED/SURG 04:26
PROVIDERS: ADMIT Family Medicine; ATTEND Family Medicine
DX: B37.81 Candidal esophagitis (principal); R07.89 Other chest pain; C09.9 Malignant neoplasm of tonsil, unspecified; C79.51 Secondary malignant neoplasm of bone; K21.9 Gastro-esophageal reflux disease without esophagitis; R63.4 Abnormal weight loss; E46 Unspecified protein-calorie malnutrition
CPT/HCPCS: 36415; 71275; 80053; 80061; 82150; 82553; 83605; 83690; 83735; 84439; 84443; 84484; 85025; 85379; 86140; 87040; 93005; 93010; 94761 ×2; 96365 ×2; 96366 ×2; 96375 ×2; 99284 ×2; J1650 ×2; 96374; J1170; J1450; J1885; J2270; J2405; J3490; J7030

== ENCOUNTER 2016-07-10 10:05 | Day surgery (SDC) | payer BC ==
[~2016-07-10 10:05] MED LIST: LIDOCAINE 2% VISCOUS(20 MG/1 ML) - 15 ML UD CUP PO ONE; LIDOCAINE HCL/PF 2% (20 MG/ML) - 5 ML SYRINGE ONE; LIDOCAINE W/ SODIUM BICARB 0.5 ML SYR ONE; Lactated Ringers 0 ML PRIMARY IV ONE; Lactated Ringers 1,000 ML PRIMARY IV ONE; MIDAZOLAM 5 MG/1 ML ONE; fentaNYL Inj 100 MCG/2 ML VIAL ONE
--- NOTE | 2016-07-10 10:43 | MINORPROC ---
Outpatient History & Physical Chief Complaint: Patient symptomatically swallow Present Illness: 60-year-old male who has tonsillar cancer status post radiation treatment. He has developed esophagitis secondary to fungal infection. History: General: WNL, Respiratory: WNL, Cardiovascular: WNL Physical Exam: General: WNL, Chest/Lungs: WNL, Heart: WNL Home Medications: Home Medications Medication Instructions Recorded Confirmed Type oxyCODONE/APAP 5/325 Tab 1 - 2 tab PO PRN PRN 06/25/16 07/04/16 History [Percocet 5/325 Tab] Fluconazole 200 mg PO DAILY #7 tab 07/05/16 Rx Nystatin Susp [Mycostatin Susp] 100,000 unit PO QID #1 bottle 07/05/16 Rx Ranitidine HCl [Zantac] 150 mg PO BID #60 cap 07/05/16 Rx Pantoprazole Sodium 1 tab PO BID #180 tab 07/08/16 Clinic Allergies/Adverse Reactions: Allergies Allergy/AdvReac Type Severity Reaction Status Date / Time hydrocodone Allergy Intermediate RASH Verified 07/10/16 10:21 Impression / Plan: Dysphagia and esophagitis Would recommend the patient have an EGD. The risk and potential complications of the procedure were discussed with the patient.. They understood this. Also discussed alternatives diagnostic and treatment options. Will get the EGD set up at the first available date. Transfusion: Transfusion Not Anticipated Anesthesia Plans: Sedation ASA Class: Class 2 : Mild Systemic Disease
--- NOTE | 2016-07-10 11:04 | GEN.OPNOTE ---
EGD Operative Note Surgery Date: 07/10/16 Preoperative Diagnosis: Dysphasia Postoperative Diagnosis: Duodenitis. Esophagitis Procedure: Esophagogastroduodenoscopy with biopsy Surgeon: Rafy Garay MD Anesthesia Provider: Destinee Ayers CRNA Anesthesia Type: MAC Indications: 60-year-old gentleman who is status post treatment for tonsillar cancer. He developed dysphasia. His subsequently found to have thrush. Findings: Esophagus: Olympus video EGD scope inserted the posterior pharynx guided into the esophagus under direct visualization. He had a lot of edematous changes to the hypopharynx but I do not see any obvious cancers. Did not get a great look of the tonsillar bed. Scope was advanced into the esophagus. In the midportion esophagus is still evidence of esophagitis with a white exudate on top of it consistent with candidiasis. GE Junction : GE junction proximal be 40-45 cm Fundus : Scope retroflexed on itself revealing small hiatal hernia otherwise fundus. Be normal Body : Body of stomach was within normal limits Prepyloric : Prepyloric areas within normal limits. Biopsy taken for CLOtest Small Intestine : First and second portion of duodenum had acute inflammatory changes. Biopsy taken. A lubricated flexible upper endoscope was inserted and passed through the esophagus and stomach into the duodenum. Pathology: Biopsy taken of the first portion of the duodenum also CLOtest taken
[2016-07-10 11:26] VITALS: RESP 18
[2016-07-10 15:01] VITALS: TEMP 97.4
== END 2016-07-10 13:12 | disposition home or self-care (01) ==
LOC: SDSC 10:05
PROVIDERS: ATTEND Surgery
DX: K20.9 Esophagitis, unspecified (principal); R13.10 Dysphagia, unspecified
CPT/HCPCS: 43239; 87339; J2704; J3010; J2001; J2250; J7120

== ENCOUNTER → 2016-07-16 | Outpatient (CLI) | payer BC ==
[2016-07-16 21:25] LABS: BASOPHILS # (AUTO) 0.01 10*3/UL; BASOPHILS % (AUTO) 0.1 % (0-1); EOSINOPHILS # (AUTO) 0.15 10*3/UL; HEMATOCRIT 36.1 % (42.0-52.0); HEMOGLOBIN 12.4 g/dL (14.0-18.0); LYMPHOCYTES # (AUTO) 0.25 10*3/uL; MEAN CORPUSCULAR HEMOGLOBIN 31.1 PG (27-31); MEAN CORPUSCULAR HGB CONC 34.3 g/dL (33-37); MEAN CORPUSCULAR VOLUME 90.5 FL (80-90); MEAN PLATELET VOLUME 9.7 FL (7.4-12.2); MONOCYTES # (AUTO) 0.61 10*3/UL (0.3-0.8); MONOCYTES % (AUTO) 8.3 % (5-15); NEUTROPHILS # (AUTO) 6.35 10*3/UL; NEUTROPHILS % (AUTO) 86.1 % (50-80); RED BLOOD COUNT 3.99 10^6/uL (4.70-6.10)
[2016-07-16 21:26] LABS: PLATELET MORPHOLOGY COMMENT NORMAL MORPHOLOGY (NORM); RBC MORPHOLOGY COMMENT NORMAL MORPHOLOGY (NORM); WBC MORPHOLOGY COMMENT NORMAL MORPHOLOGY (NORM)
[2016-07-16 21:33] LABS: BUN/CREATININE RATIO 9.23 (6-20); CALCIUM 8.7 mg/dL (8.7-10.7); SERUM ALBUMIN 3.6 g/dL (3.5-4.8)
== END ==
LOC: LAB 21:12
PROVIDERS: ATTEND Internal Medicine
DX: C10.8 Malignant neoplasm of overlapping sites of oropharynx (principal)
CPT/HCPCS: 36415; 80053; 84443; 85025

== ENCOUNTER 2016-07-17 10:36 | Outpatient (CLI) | payer BC ==
[2016-07-17] MEDS ORDERED: HEPARIN 500 UNIT/5 ML SYRINGE FOR CENTRAL LINE IVP PRN (11:00)
[2016-07-17] MEDS ORDERED: NORMAL SALINE 10 ML SYRINGE FLUSH IVP PRN (11:00)
[2016-07-17] MEDS ORDERED: LIDOCAINE W/ SODIUM BICARB 0.5 ML SYR SUBD PRN (11:00)
[2016-07-17] MEDS: Sodium Chloride 0.9% 1,000 ML PRIMARY IV SCH (11:32)
[2016-07-17 11:38] VITALS: RESP 18; TEMP 98.1
== END 2016-07-20 10:07 | disposition home or self-care (01) ==
LOC: IV THERAPY 10:36
PROVIDERS: ATTEND Family Medicine
DX: C15.9 Malignant neoplasm of esophagus, unspecified (principal)
CPT/HCPCS: 96360; 96361; 99211; J7030

== ENCOUNTER → 2016-07-30 | Outpatient (CLI) | payer BC ==
[2016-07-30 18:43] LABS: BASOPHILS # (AUTO) 0.04 10*3/UL; BASOPHILS % (AUTO) 0.6 % (0-1); EOSINOPHILS # (AUTO) 0.21 10*3/UL; EOSINOPHILS % (AUTO) 3.4 % (0-8); HEMATOCRIT 36.1 % (42.0-52.0); HEMOGLOBIN 11.8 g/dL (14.0-18.0); LYMPHOCYTES # (AUTO) 0.39 10*3/uL; MEAN CORPUSCULAR HGB CONC 32.7 g/dL (33-37); MEAN CORPUSCULAR VOLUME 91.9 FL (80-90); MEAN PLATELET VOLUME 8.8 FL (7.4-12.2); MONOCYTES # (AUTO) 0.54 10*3/UL (0.3-0.8); MONOCYTES % (AUTO) 8.8 % (5-15); NEUTROPHILS # (AUTO) 4.97 10*3/UL; NEUTROPHILS % (AUTO) 80.7 % (50-80); RED BLOOD COUNT 3.93 10^6/uL (4.70-6.10)
[2016-07-30 18:44] LABS: PLATELET MORPHOLOGY COMMENT NORMAL MORPHOLOGY (NORM); RBC MORPHOLOGY COMMENT NORMAL MORPHOLOGY (NORM); WBC MORPHOLOGY COMMENT NORMAL MORPHOLOGY (NORM)
[2016-07-30 18:54] LABS: BLOOD UREA NITROGEN 18 mg/dL (7-22); CALCIUM 9.3 mg/dL (8.7-10.7); EST GLOMERULAR FILTRATION > 60 (>60 ml/min/1.73m(2)); SERUM ALBUMIN 3.8 g/dL (3.5-4.8)
== END ==
LOC: LAB 18:30
PROVIDERS: ATTEND Internal Medicine
DX: C10.8 Malignant neoplasm of overlapping sites of oropharynx (principal)
CPT/HCPCS: 36415; 80053; 82533; 85025